=== PATIENT | female | born 1960 | race Two or more races ===

== ENCOUNTER 2019-11-14 05:17 | Emergency (ER) | payer OTHER ==
[~2019-11-14] VITALS: Ht 165.1 cm; Wt 74.8 kg
[2019-11-14] MEDS ORDERED: ORPHENADRINE C100 MG PO ×2 (06:12→06:21)
[2019-11-14] MEDS ORDERED: ULTRAM50 MG PO ×2 (06:12→06:21)
[2019-11-14] MEDS ORDERED: BUSPIRONE HCL7.5 MG (06:14)
== END 2019-11-14 06:25 | disposition home or self-care (01) ==
LOC: ER 05:17
DX: M54.2 Cervicalgia (principal)